=== PATIENT | female | born 1965 | race Caucasian/White ===

== ENCOUNTER 2018-06-26 23:15 | Emergency (ER) | payer MEDICAID, OTHER ==
[~2018-06-26] VITALS: Ht 165.1 cm; Wt 79.3 kg
[~2018-06-26 23:15] MED LIST: METH20TA PO
--- NOTE | 2018-06-26 23:48 | NUR ---
FIRST CONTACT WITH PT. PT HAD MGL ABOUT 6 DAYS AGO AND C/O RIGHT SIDED CHEST/SHOULDER/ANKLE PAIN. DENIES HEAD TRAUMA/LOC. PT ALSO C/O COUGH FOR A FEW DAYS. PT'S AOX4. RESPS EVEN AND UNLABORED. BP/SPO2 MONITORS IN PLACE. CALL LIGHT WITHIN REACH. EDMD AT BEDSIDE TO ASSESS.
[2018-06-27 00:40] VITALS: BP 152/85
--- NOTE | 2018-06-27 00:52 | NUR ---
pt requesting med for cough. edmd notified.
[2018-06-27] MEDS ORDERED: BENZONATATE 100 MG CAPSULE ONE (00:55)
--- NOTE | 2018-06-27 00:59 | NUR ---
pt medicated per emar. pt tolerated well.
[2018-06-27] MEDS ORDERED: BENZONATATE 100 MG CAPSULE PO ONE (01:00)
--- NOTE | 2018-06-27 01:16 | NUR ---
edmd at bedside to explain all results. awaiting dc.
== END 2018-06-27 01:46 | disposition home or self-care (01) ==
LOC: ED 23:40
DX: G89.11 Acute pain due to trauma (principal); M25.571 Pain in right ankle and joints of right foot; R07.89 Other chest pain; R05 Cough; W01.0XXA Fall on same level from slipping, tripping and stumbling without subsequent striking against object, initial encounter; Y93.89 Activity, other specified; Y92.410 Unspecified street and highway as the place of occurrence of the external cause; Y99.8 Other external cause status
CPT/HCPCS: 71046; 99283

== ENCOUNTER 2019-03-17 05:16 | Emergency (ER) | payer MEDICARE, MEDICAID ==
[~2019-03-17] VITALS: Ht 165.1 cm; Wt 78.0 kg
[2019-03-17] MEDS ORDERED: MORPHINE SULFATE 4 MG/ML, 1ML IVPush ONE (05:30)
[2019-03-17] MEDS ORDERED: MORPHINE SULFATE 4 MG/ML, 1ML ONE (05:35)
--- NOTE | 2019-03-17 06:09 | NUR ---
PT MEDICATED FOR PAIN AND NOW WTO CT SCAN
--- NOTE | 2019-03-17 06:20 | NUR ---
PT BACK FROM CT SCAN
[2019-03-17] MEDS ORDERED: KETAMINE 10 MG/ML, 20ML IV ONE (06:30)
--- NOTE | 2019-03-17 06:38 | NUR ---
PT NOT ABLE TO LAY FLAT FOR CT SCAN SO IT WILL BE ATTEMPTED AGAIN AT 0700 AFTER MEDS GIVEN.
[2019-03-17] MEDS ORDERED: KETOROLAC 30 MG/1 ML ONE (06:53)
[2019-03-17] MEDS ORDERED: KETOROLAC 30 MG/1 ML IVPush ONE (07:00)
--- NOTE | 2019-03-17 07:02 | NUR ---
REPORT RECEIVED FROM BRENDON HANNON. PLAN OF CARE DISCUSSED.
--- NOTE | 2019-03-17 07:02 | NUR ---
JAMA MEDICATED PER EMAR
--- NOTE | 2019-03-17 07:04 | NUR ---
CALLED CT TO COME GET PATIENT KETAMINE WAS PUSHED SO PATIENT CAN LAY FLAT IN CT.
[2019-03-17] MEDS ORDERED: LABETALOL 5MG/ML, 20ML ONE (07:10)
--- NOTE | 2019-03-17 07:12 | NUR ---
PATIENT IN CT
--- NOTE | 2019-03-17 07:26 | NUR ---
DISCUSSED BLOOD PRESSURE WITH MD, RECEIVED ORDERS
--- NOTE | 2019-03-17 07:27 | NUR ---
BACK FROM CT
[2019-03-17] MEDS ORDERED: LABETALOL 5MG/ML, 20ML IVPush ONE (07:30)
--- NOTE | 2019-03-17 07:31 | NUR ---
PT BACK FROM CT, MEDICATED PER JUN. PT C/O OF 01/31 RIB PAIN
--- NOTE | 2019-03-17 07:48 | NUR ---
PT REQUESTING A SODA, GAVE WATER. TO [employer] CART TO OBTAIN HER A SODA
[2019-03-17] MEDS ORDERED: OXYcodone/APAP 10/325MG TABLET PO ONE (08:30)
[2019-03-17] MEDS ORDERED: OXYcodone/APAP 10/325MG TABLET ONE (08:40)
[2019-03-17 08:41] VITALS: BP 162/83
--- NOTE | 2019-03-17 08:57 | NUR ---
Patient/Caregiver given discharge instructions and they have confirmed that they understand the instructions. Patient ambulatory with steady gait to discharge.
== END 2019-03-17 08:55 | disposition home or self-care (01) ==
LOC: ED 05:23
DX: S22.41XA Multiple fractures of ribs, right side, initial encounter for closed fracture (principal); W01.198A Fall on same level from slipping, tripping and stumbling with subsequent striking against other object, initial encounter; Y93.89 Activity, other specified; Y92.009 Unspecified place in unspecified non-institutional (private) residence as the place of occurrence of the external cause; Y99.8 Other external cause status
CPT/HCPCS: 71250; 96374; 96375; 99284; J1885; J2270